=== PATIENT | male | born 1940 | race Asian ===

== ENCOUNTER 2017-08-11 06:49 | Inpatient (IN) | payer MEDICAID ==
[~2017-08-11] VITALS: Ht 160 cm; Wt 74.8 kg
[2017-08-11 07:20] LABS: BASOPHIL % 0.4 % (0-2); PLATELET COUNT 187 x10^3mcL (130-400)
[2017-08-11 07:26] LABS: RED CELL DISTRIBUTION WIDTH 14.7 % (11.5-14.5)
[2017-08-11 07:39] LABS: CALCIUM 8.6 mg/dL (8.5-10.1); CARBON DIOXIDE 24.4 mmol/L (21-32); CHLORIDE SERUM 107 mmol/L (98-107); CREATININE SERUM 1.1 mg/dL (0.7-1.3); GLUCOSE SERUM 174 mg/dL (74-106); POTASSIUM SERUM 3.8 mmol/L (3.5-5.1); SODIUM SERUM 142 mmol/L (136-145)
[2017-08-11 07:43] LABS: ALBUMIN 3.8 g/dL (3.4-5.0); ALKALINE PHOSPHATASE 69 U/L (46-116); ALT/SGPT 61 U/L (16-63); AST/SGOT 36 U/L (15-37); BILIRUBIN TOTAL 0.94 mg/dL (0.20-1.00); TOTAL PROTEIN, SERUM 7.8 g/dL (6.4-8.2)
[2017-08-11 09:20] VITALS: BP 154/70
[2017-08-11 10:01] VITALS: BP 154/70
[2017-08-11 10:34] LABS: MAGNESIUM 2.1 mg/dL (1.8-2.4); PHOSPHOROUS 3.6 mg/dL (2.5-4.9)
[2017-08-11 10:46] LABS: FREE T4 1.51 ng/dL (0.76-1.46)
[2017-08-11 10:47] LABS: FREE THYROXINE INDEX 5.1 ug/dL (1.4-4.5); T4(THYROXINE) 14.3 ug/dL (4.7-13.3)
[2017-08-11 10:49] LABS: T3 TOTAL 1.35 ng/mL
[2017-08-11 13:16] VITALS: BP 144/72
[2017-08-11 17:11] VITALS: BP 154/60
[2017-08-11 20:43] VITALS: BP 121/46
[2017-08-12 03:37] LABS: microscopic required? NO
[2017-08-12 03:48] LABS: urine erythrocyte NEGATIVE (NEGATIVE)
[2017-08-12 03:57] LABS: AMPHETAMINE QUAL UR NONE DETECTED (NEG <=1000)
[2017-08-12 05:02] VITALS: BP 149/62
[2017-08-12 06:41] LABS: BASOPHIL % 0.5 % (0-2); PLATELET COUNT 184 x10^3mcL (130-400)
[2017-08-12 06:54] LABS: CALCIUM 8.2 mg/dL (8.5-10.1); CARBON DIOXIDE 23.3 mmol/L (21-32); CHLORIDE SERUM 107 mmol/L (98-107); GLUCOSE SERUM 105 mg/dL (74-106); POTASSIUM SERUM 4.3 mmol/L (3.5-5.1); SODIUM SERUM 141 mmol/L (136-145)
[2017-08-12 06:55] LABS: RED CELL DISTRIBUTION WIDTH 14.6 % (11.5-14.5)
[2017-08-12 08:34] VITALS: BP 135/56
[2017-08-12 13:05] VITALS: BP 144/62
[2017-08-12 18:01] VITALS: BP 157/57
[2017-08-12 21:12] VITALS: BP 148/61
[2017-08-13 05:59] LABS: BASOPHIL % 0.5 % (0-2); PLATELET COUNT 172 x10^3mcL (130-400); RED CELL DISTRIBUTION WIDTH 14.2 % (11.5-14.5)
[2017-08-13 06:22] LABS: CARBON DIOXIDE 23.1 mmol/L (21-32); CHLORIDE SERUM 108 mmol/L (98-107); CREATININE SERUM 0.9 mg/dL (0.7-1.3); GLUCOSE SERUM 103 mg/dL (74-106); SODIUM SERUM 140 mmol/L (136-145)
[2017-08-13 06:46] VITALS: BP 156/65
[2017-08-13 08:00] VITALS: BP 130/54
[2017-08-13] MEDS ORDERED: CLARITIN10 MG PO (08:55)
[2017-08-13] MEDS ORDERED: STOOL SOFTENER100 MG PO (08:55)
[2017-08-13] MEDS ORDERED: AMLODIPINE BESY1 C12 PO (08:56)
[2017-08-13] MEDS ORDERED: MECLIZINE HCL12.5 MG PO (08:59)
[2017-08-13 11:12] VITALS: BP 130/54
== END 2017-08-13 12:54 | disposition home or self-care (01) | DRG 204 ==
LOC: ED 06:49 → DU 08:11
PROVIDERS: Emergency Medicine; Family Medicine
DX: R55 Syncope and collapse (principal); I65.23 Occlusion and stenosis of bilateral carotid arteries; I10 Essential (primary) hypertension; K59.00 Constipation, unspecified; E03.9 Hypothyroidism, unspecified; F17.210 Nicotine dependence, cigarettes, uncomplicated; E66.3 Overweight; Z68.29 Body mass index [BMI] 29.0-29.9, adult
CPT/HCPCS: 83880; 84439; J7030; Q0092